=== PATIENT | male | born 1985 | race Caucasian/White ===

== ENCOUNTER 2023-03-18 16:19 | Outpatient (CLI) | payer BC, SELFPAY | END 2023-03-18 16:20 | disposition home or self-care (01) | PROVIDERS: PCP Emergency Medicine; Visit Provider Emergency Medicine | DX: Z00.00 Encounter for general adult medical examination without abnormal findings (principal); R00.2 Palpitations; F32.A Depression, unspecified | CPT/HCPCS: 80053; 82306; 82607; 83735 ==

== ENCOUNTER 2023-06-01 16:28 | Outpatient (CLI) | payer BC, SELFPAY | END 2023-06-01 16:29 | disposition home or self-care (01) | LOC: NFLDREF 06-18 02:55 | PROVIDERS: PCP Emergency Medicine; Referring Provider Emergency Medicine; Visit Provider Emergency Medicine | DX: R74.01 Elevation of levels of liver transaminase levels (principal); Z86.2 Personal history of diseases of the blood and blood-forming organs and certain disorders involving the immune mechanism | CPT/HCPCS: 80076; 82728 ==

== ENCOUNTER 2024-03-26 20:53 | Emergency (ER) | payer BC, SELFPAY ==
[2024-03-26 21:02] VITALS: BP 112/68; PULSE 117; RESP 18; TEMP 39.5; O2SAT 97; BMI 33.1
--- NOTE | 2024-03-26 21:26 | CRLHL7_ITS ---
For Patients: As a result of the Cures Act, medical imaging exams and procedure reports are released immediately into your electronic medical record. You may view this report before your referring provider. If you have questions, please contact your health care provider. INDICATION: Cough and fever. TECHNIQUE: Chest 2 views. COMPARISON: None. FINDINGS: Cardiovascular and mediastinum: Heart size and vasculature are normal in caliber and appearance. Lungs and pleural spaces: Left lower lobe patchy consolidation. Right lung is clear. No pleural effusions or pneumothorax. Bones and soft tissues: No significant findings. IMPRESSION: Left lower lobe pneumonia. Dictated by Jamie Musa MD @ 03/26/2024 10:46:01 PM (Electronically Signed)
--- NOTE | 2024-03-26 21:27 | ED.FEVER ---
HPI - Fever General Chief Complaint: Fever Stated Complaint: Chest pain, shortness of breath Time Seen by Provider: 03/26/24 21:09 History of Present Illness HPI Narrative: This 38-year-old male comes in with his who is a nurse. He reports 3 days of fever with cough. He did present to a different emergency room a couple days ago and had negative results for nasal pharyngeal swab for viruses tested. He comes in here with persistent fevers and coughing. He also reports a severe headache. He does have a history of headaches. Does not report any shortness of breath. He arrives here with a temperature 103.1? F. he is also tachycardic with a heart rate at 117. He is maintaining sufficient oximetry at 97% on room air. Related Data Home Medications ?Medication ?Instructions ?Recorded ?Confirmed alprazolam 0.5 mg tablet mg PO 03/18/23 03/18/23 amitriptyline 75 mg tablet 75 mg PO QPM 03/18/23 03/18/23 Allergies Allergy/AdvReac Type Severity Reaction Status Date / Time No Known Drug Allergies Allergy Unverified 03/18/23 15:57 Review of Systems Status of ROS Reports: 10 or more systems reviewed and unremarkable except as noted in History and below Narrative Constitutional: No weight gain or loss. Fevers for 3 days. Eyes: No discharge. No vision changes. HENT: No congestion, no sore throat, no ear pain. Cardiovascular: No chest pain, no palpitations. Respiratory: No shortness of breath, no wheezes. Cough for 3 days. Gastrointestinal: No abdominal pain, no vomiting, no diarrhea. Genitourinary: No dysuria, no hematuria. Musculoskeletal: Normal range of motion. Skin: No rashes, no pruritis. Neurological: No dizziness, weakness, sensory change, speech change. Endo/Heme/Allergies: No bruising or bleeding. No polydipsia. Pysch: no suicidality, no anxiety, no insomnia. All other systems reviewed and are negative. 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 HEENT: Normocephalic, atraumatic. Neck: Normal range of motion. Nontender. Supple. Heart: Regular. No murmurs. Normal rate. Intact distal pulses. Lungs: Clear to auscultation. No chest discomfort. No wheezes, rhonchi, or rales. Abdomen: Normal bowel sounds. Nontender. No rebound tenderness. Genitalia: Deferred. Back: No midline tenderness. Normal range of motion. Extremities: Normal range of motion. No injury. Skin: Intact. No rash. Warm. No erythema or pallor. Neurologic: No altered sensation. No weakness. Alert and oriented. Psychiatric: No suicidality. No anxiety or depression. No insomnia. Nursing notes and vitals signs are reviewed. Const Vital Signs, click to edit/add: Vital Signs - 24 hr 03/26/24 21:02 03/26/24 22:00 03/26/24 22:38 Temperature 103.1 F H 100.0 F H Pulse Rate [Left Pulse Oximeter] 117 H 102 H Respiratory Rate 18 Blood Pressure [Right Upper Arm] 112/68 Pulse Oximetry 97 92 92 Oxygen Delivery Method Room Air Room Air Room Air Course Vital Signs Vital signs: Initial Vital Signs Temperature 103.1 F H 03/26/24 21:02 Temperature Source Temporal Artery Scan 03/26/24 21:02 Pulse Rate 117 H 03/26/24 21:02 Pulse Rhythm Regular 03/26/24 21:02 Respiratory Rate 18 03/26/24 21:02 Blood Pressure 112/68 03/26/24 21:02 Blood Pressure Mean 82 12/22/24 21:02 Blood Pressure Position Sitting 03/26/24 21:02 Pulse Oximetry 97 03/26/24 21:02 Oxygen Delivery Method Room Air 03/26/24 21:02 Vital Signs Temperature 103.1 F H 03/26/24 21:02 Pulse Rate 117 H 03/26/24 21:02 Respiratory Rate 18 03/26/24 21:02 Blood Pressure 112/68 03/26/24 21:02 Pulse Oximetry 97 03/26/24 21:02 Oxygen Delivery Method Room Air 03/26/24 21:02 Temperature 100.0 F H 03/26/24 22:38 Pulse Rate 102 H 03/26/24 22:38 Respiratory Rate 18 03/26/24 21:02 Blood Pressure 112/68 03/26/24 21:02 Pulse Oximetry 92 03/26/24 22:38 Oxygen Delivery Method Room Air 03/26/24 22:38 Medications Administered Medications: Generic Name Dose Route Start Last Admin Trade Name Freq PRN Reason Stop Dose Admin Azithromycin 500 mg 03/26/24 22:55 03/26/24 23:03 Azithromycin 250 Mg Tablet PO 03/26/24 22:56 500 mg ONCE ONE Administration Sodium Chloride 500 mls @ 500 mls/hr 03/26/24 22:42 03/26/24 22:52 0.9 % Sodium Chloride 500 Ml IV 03/26/24 23:41 500 mls/hr .Q1H ONE Administration Discontinued Medications Generic Name Dose Route Start Last Admin Trade Name Freq PRN Reason Stop Dose Admin Dexamethasone 10 mg 03/26/24 22:42 03/26/24 22:53 Dexamethasone 4 Mg/Ml Vial IV 03/26/24 22:43 10 mg ONCE ONE Administration Sodium Chloride 500 mls @ 500 mls/hr 03/26/24 21:26 03/26/24 22:13 0.9 % Sodium Chloride 500 Ml IV 03/26/24 22:25 Infused .Q1H ONE Infusion Ceftriaxone Sodium 1 gm/ 100 mls @ 200 mls/hr 03/26/24 22:02 03/26/24 23:05 Sodium Chloride IVPB 03/26/24 22:03 Infused ONCE ONE Infusion Ketorolac Tromethamine 30 mg 03/26/24 21:26 03/26/24 21:54 Ketorolac 30 Mg/Ml Inj IVP 03/26/24 21:27 30 mg ONCE ONE Administration Ondansetron HCl 4 mg 03/26/24 21:26 03/26/24 21:54 Ondansetron 2 Mg/Ml Inj IVP 03/26/24 21:27 4 mg ONCE ONE Administration MDM - Fever MDM Narrative Medical decision making narrative: This patient comes in with a fever and cough. An IV was established where he received 2 separate doses of 500 mL normal saline along with Toradol 30 mg. After blood cultures were obtained he received a g of Rocephin intravenously. This was later followed by an oral dose of Zithromax 500 mg. Chest x-ray returns with evidence of a left lower lobe pneumonia. Lab results are reassuring. In particular his lactate level is in normal range. The patient is doing much better and no longer has a fever. He is maintaining sufficient oximetry and vital signs. He is okay to be discharged home. He did receive [facility] prescriptions for doxycycline and Toradol. Lab Data Labs: Lab Results 03/26/24 Range/Units 19:41 WBC 8.13 (4.50-11.00) K/uL RBC 4.66 (4.30-5.90) m/uL Hgb 15.0 (13.5-17.5) gm/dL Hct 43.5 (37.0-53.0) % MCV 93 (80-100) fL MCH 32 (26-34) pg MCHC 35 (32-36) gm/dL RDW Coeff of Valery 11.8 (11.5-15.5) % Plt Count 214 (140-440) K/uL Neut % (Auto) 74.2 H (42.0-72.0) % Lymph % (Auto) 15.0 L (20-44) % [place] % (Auto) 10.0 (0.0-11.0) % Eos % (Auto) 0.7 (0.0-7.0) % Baso % (Auto) 0.1 (0.0-3.0) % Neut # (Auto) 6.00 (1.7-7.0) K/uL Lymph # (Auto) 1.20 (0.90-2.90) K/uL [place] # (Auto) 0.80 (0.00-0.90) K/UL Eos # (Auto) 0.06 (0.00-0.50) K/uL Baso # (Auto) 0.01 (0.00-0.30) K/uL Abs Immat Gran (auto) 0.00 (0.00-0.30) K/uL Imm/Tot Granulo (auto) 0.0 % Sodium 132 L (135-149) mmol/L Potassium 3.9 (3.6-5.1) mmol/L Chloride 101 (96-114) mmol/L Carbon Dioxide 22 (20-32) mmol/L Anion Gap 9 (7-15) mEq/L BUN 7 (5-24) mg/dL Creatinine 0.9 (0.5-1.5) mg/dL Estimated Creat Clear 130.40 Estimated GFR 111 ml/min Glucose 119 H (60-115) mg/dL Lactate 1.3 (0.5-1.9) mmol/L Calcium 8.6 (8.4-10.6) mg/dL Imaging Data Chest x-ray: Radiologist's impression: Left lower lobe pneumonia. Discharge Plan Discharge Clinical Impression: Pneumonia Patient Disposition: Home w/ Parent or Adult Condition: Improved Additional Instructions: take medications as prescribed. Follow up with MD return if worsening symptoms occur. Prescriptions: No Action amitriptyline 75 mg tablet 75 mg PO QPM alprazolam 0.5 mg tablet PO Follow Up/Referrals: Nancy Silverman MD [Primary Care Provider] - Stand Alone Forms: [employer] Info Instructions
[2024-03-26 21:51] LABS: Lactate* 1.3 mmol/L (0.5-1.9)
[2024-03-26 21:53] LABS: Basophils Absolute Auto 0.01 K/uL (0.00-0.30); Basophils Percent Auto 0.1 % (0.0-3.0); Eosinophils Absolute Auto 0.06 K/uL (0.00-0.50); Eosinophils Percent Auto 0.7 % (0.0-7.0); Hematocrit 43.5 % (37.0-53.0); Mean Corpuscular HGB Conc 35 gm/dL (32-36); Mean Corpuscular Hemoglobin 32 pg (26-34); Mean Corpuscular Volume 93 fL (80-100); Neutrophils Percent Auto 74.2 % (42.0-72.0); Platelet Count* 214 K/uL (140-440); RDW Coefficient of Variation % 11.8 % (11.5-15.5); Red Blood Count 4.66 m/uL (4.30-5.90); White Blood Count* 8.13 K/uL (4.50-11.00)
[2024-03-26] MEDS: 0.9 % SODIUM CHLORIDE 500 ML 500 ML IV ×2 (21:54→22:52)
[2024-03-26] MEDS: KETOROLAC 30 MG/ML inj IVP (21:54)
[2024-03-26] MEDS: ONDANSETRON 2 MG/ML inj 4 MG IVP (21:54)
[2024-03-26 21:58] LABS: Slide Review Reflex No
[2024-03-26 22:00] VITALS: O2SAT 92
[2024-03-26 22:09] LABS: Chloride* 101 mmol/L (96-114); Potassium* 3.9 mmol/L (3.6-5.1); Sodium* 132 mmol/L (135-149)
[2024-03-26 22:12] LABS: Anion Gap 9 mEq/L (7-15); Blood Urea Nitrogen* 7 mg/dL (5-24); Carbon Dioxide* 22 mmol/L (20-32); Creatinine* 0.9 mg/dL (0.5-1.5); Estimated Glomerular Filt Rate 111 ml/min; Glucose* 119 mg/dL (60-115)
[2024-03-26 22:13] LABS: Calcium* 8.6 mg/dL (8.4-10.6)
[2024-03-26] MEDS: cefTRIAXone 1 GM in 0.9 % SODIUM CHLORIDE Mini-bag 100 ML IVPB (22:33)
[2024-03-26 22:38] VITALS: PULSE 102; TEMP 37.8; O2SAT 92
[2024-03-26] MEDS: dexAMETHasone 4 MG/ML VIAL 10 MG IV (22:53)
[2024-03-26] MEDS: AZITHROMYCIN 250 MG TABLET 500 MG PO (23:03)
[2024-03-26 23:16] VITALS: PULSE 91; O2SAT 94
== END 2024-03-26 23:40 | disposition home or self-care (01) ==
PROVIDERS: Emergency Provider Emergency Medicine Emergency Medical Services; PCP Emergency Medicine
DX: J18.9 Pneumonia, unspecified organism (principal)
CPT/HCPCS: 36415; 71046; 80048; 83605; 85025; 87040; 96365; 96375; 99284; A9270; J0696; J1100; J1885; J2405; J7030

== ENCOUNTER 2024-06-23 08:05 | Outpatient (CLI) | payer BC, SELFPAY | END 2024-06-23 08:06 | disposition home or self-care (01) | PROVIDERS: PCP Emergency Medicine; Referring Provider Emergency Medicine; Visit Provider Family Medicine | DX: R53.83 Other fatigue (principal); R00.2 Palpitations; R79.89 Other specified abnormal findings of blood chemistry; R74.01 Elevation of levels of liver transaminase levels | CPT/HCPCS: 80053; 80061; 84270; 84402; 84403 ==

== ENCOUNTER 2024-12-06 08:10 | Outpatient (CLI) | payer BC, SELFPAY ==
[2024-12-06 15:35] LABS: Vitamin B12* 925 pg/mL (243-894)
== END 2024-12-06 08:11 | disposition home or self-care (01) ==
LOC: NPINS 08:12
PROVIDERS: PCP Family Medicine; Visit Provider Psychiatry & Neurology Neurology
DX: E83.10 Disorder of iron metabolism, unspecified (principal); G47.61 Periodic limb movement disorder; F51.5 Nightmare disorder; G47.9 Sleep disorder, unspecified
CPT/HCPCS: 80061; 80076; 82607; 82728; 84270; 84402; 84403

== ENCOUNTER 2024-12-08 17:10 | Outpatient (CLI) | payer BC, SELFPAY | END 2024-12-08 17:11 | disposition home or self-care (01) | LOC: NFLDREF 12-13 16:25 | PROVIDERS: PCP Family Medicine; Referring Provider Family Medicine; Visit Provider Physician Assistant | DX: N39.0 Urinary tract infection, site not specified (principal) | CPT/HCPCS: 87086 ==